=== PATIENT | female | born 1940 | race Caucasian/White ===

== ENCOUNTER → 2024-02-26 | Outpatient (CLI) | payer MEDICARE ==
[~2024-02-26] MED LIST: APIX5TAB PO; ASPI-556 PO; ATEN50TA PO; ATOR10 PO; HYDR-2132 PO; LEVO100T12 PO; LEVO75TA10 PO; LOSA50TA64 PO; OMEP20TA20 PO; VIT1CAPS5 PO
== END | disposition home or self-care (01) ==
LOC: RAH 13:46
PROVIDERS: ATTEND Student in an Organized Health Care Education/Training Program
DX: M19.012 Primary osteoarthritis, left shoulder (principal); M67.814 Other specified disorders of tendon, left shoulder; M25.512 Pain in left shoulder
CPT/HCPCS: 73221

== ENCOUNTER 2024-03-06 13:00 | Observation (INO) | payer MEDICARE ==
[~2024-03-06] VITALS: Ht 166.4 cm; Wt 79.6 kg
[~2024-03-06 13:00] MED LIST changes: -APIX5TAB PO; -ATOR10 PO; -HYDR-2132 PO; -LEVO100T12 PO; -LEVO75TA10 PO; -OMEP20TA20 PO
[2024-03-06 13:47] LABS: BASOPHILS # (AUTO) 0.02 K/uL (0.00-0.20); BASOPHILS % (AUTO) 0.4 % (0.0-5.0); EOSINOPHILS # (AUTO) 0.08 K/uL (0.00-0.70); EOSINOPHILS % (AUTO) 1.7 % (0.0-8.0); HEMATOCRIT 42.1 % (36-48); IMMATURE GRANULOCYTE ABSOLUTE 0.01 K/uL (0-1); LYMPHOCYTES # (AUTO) 1.8 K/uL (1.0-4.8); LYMPHOCYTES % (AUTO) 36.6 % (21.0-51.0); MEAN CORPUSCULAR HEMOGLOBIN 29.6 pg (27.0-33.0); MEAN CORPUSCULAR HGB CONC 32.1 g/dL (32.0-36.0); MEAN CORPUSCULAR VOLUME 92.3 fL (79-99); MONOCYTES # (AUTO) 0.3 K/uL (0.1-1.0); MONOCYTES % (AUTO) 7.1 % (3.0-13.0); NEUTROPHILS # (AUTO) 2.6 K/uL (1.8-7.7); PLATELET COUNT (AUTO) 203 K/uL (130-400); RED BLOOD CELL COUNT(AUTO) 4.56 MIL/uL (4.00-5.50); RED CELL DISTRIBUTION WIDTH 13.6 % (11.0-15.5); WHITE BLOOD COUNT (AUTO) 4.8 K/uL (4.8-10.8)
[2024-03-06 13:48] VITALS: BP 164/80; PULSE 89; RESP 17; TEMP 98
[2024-03-06 13:57] LABS: ALBUMIN 3.7 g/dL (3.5-5.0); CARBON DIOXIDE 31 mmol/L (21-32); CHLORIDE 101 mmol/L (101-111); CREATININE 1.2 mg/dL (0.5-1.0); GLOMERULAR FILTR. RATE CALC 45 mL/min (>90); GLUCOSE,RANDOM 121 mg/dL (70-105); POTASSIUM 4.5 mmol/L (3.5-5.1); SODIUM SERUM 139 mmol/L (136-145); UREA NITROGEN, BLOOD 32 mg/dL (7-18)
[2024-03-06 14:03] LABS: INR 1.04 (0.85-1.15); PROTHROMBIN TIME 11.2 SEC (9.6-11.6)
[2024-03-06 14:04] LABS: PARTIAL THROMBOPLASTIN TIME 27.3 SEC (26.3-35.5)
[2024-03-06] MEDS ORDERED: PHARMACY COMMUNICATION MISC SCH (14:30)
[2024-03-07] MEDS ORDERED: CHOL200059 PO (13:14)
[2024-03-07] MEDS ORDERED: LEVO100T4 PO (13:14)
[2024-03-07] MEDS ORDERED: CYAN1TAB44 PO (13:14)
[2024-03-07] MEDS ORDERED: ACET-2123 PO (13:14)
[2024-03-11] VITALS (28 sets, daily range): BP systolic 130–196; BP diastolic 58–99; PULSE 68–94; RESP 15–20; TEMP 96.9–98.7; O2SAT 97–98
[2024-03-11] MEDS ORDERED: SUCCINYLCHOLINE CHLORIDE 20 MG/ML 10 ML VIAL ONE (06:41)
[2024-03-11] MEDS ORDERED: LIDOCAINE PF 100MG/5ML (2%) SYRINGE 5ML ONE (06:41)
[2024-03-11] MEDS ORDERED: NEOSTIGMINE METHYLSULFATE 1MG/ML IV ONE (06:42)
[2024-03-11] MEDS ORDERED: ONDANSETRON 4MG INJ ONE (06:42)
[2024-03-11] MEDS ORDERED: proPOFol 10 MG/ML 20ML VIAL IV ONE (06:42)
[2024-03-11] MEDS ORDERED: GLYCOPYRROLATE 0.2 MG/ML 5 ML VIAL ONE (06:42)
[2024-03-11] MEDS ORDERED: dexaMETHasone SOD PHOSPHATE 10MG/ML 1ML VIAL ONE ×2 (06:42→09:57)
[2024-03-11] MEDS ORDERED: FENTanyl CITRate PF 50 MCG/1 ML 2ML VIAL ONE ×2 (06:43→09:37)
[2024-03-11] MEDS ORDERED: rocuRONium bROMide 10MG/1ML 5ML VL ONE (06:43)
[2024-03-11] MEDS ORDERED: MIDAZOLAM HCL 1 MG/ML 2ML VIAL ONE ×2 (06:43→09:37)
[2024-03-11] MEDS: LACTATED RINGERS 1000ML 1,000 ML IV ONE (06:47)
[2024-03-11] MEDS ORDERED: ALBUMIN (HUMAN) 5% 250 ML IV ONE (06:52)
[2024-03-11] MEDS ORDERED: PHENYLEPHRINE HCL 10 MG/ML 1ML VIAL IV ONE ×2 (06:55→10:53)
[2024-03-11] MEDS: SCOPOLAMINE HYDROBROMIDE 1 EACH ADH..PATCH TD SCH (07:24)
[2024-03-11] MEDS: SCOPOLAMINE HYDROBROMIDE 1 EACH ADH..PATCH TD ONE (07:24)
[2024-03-11 08:16] LABS: APPEARANCE,URINE CLEAR (CLEAR); BILIRUBIN,URINE NEGATIVE (NEGATIVE); COLOR,URINE LIGHT-YELLOW (YELLOW); GLUCOSE, URINE (UA) NEGATIVE (NEGATIVE); KETONES,URINE NEGATIVE (NEGATIVE); LEUKOCYTE ESTERASE ,URINE 25 Leu/uL (NEGATIVE); NITRATE,URINE NEGATIVE (NEGATIVE); OCCULT BLOOD,URINE NEGATIVE (NEGATIVE); PROTEIN,URINE NEGATIVE (NEGATIVE); UROBILINOGEN,URINE 0.2 mg/dL (0.2-1.0)
[2024-03-11 08:24] LABS: ADD UA MICROSCOPIC YES
[2024-03-11] MEDS ORDERED: VITAMIN B-12 PO (08:30)
[2024-03-11 08:51] LABS: MUCUS,URINE RARE LPF (None Seen); RBC,URINE 0-1 /HPF (0-1); SQUAMOUS EPITHELIAL CELL,UR RARE /HPF (0-2)
[2024-03-11] MEDS ORDERED: ePHEDrine SULFate 50 MG/ML AMPULE ONE (09:59)
[2024-03-11] MEDS: ceFAZolin SODIUM 2 GM VIAL ONE ×2 (10:30→18:25)
[2024-03-11] MEDS: TRANEXAMIC ACID 1000MG/10ML ONE (10:40)
[2024-03-11] MEDS ORDERED: KCL 20 MEQ ERTAB PO PRN (13:00)
[2024-03-11] MEDS ORDERED: POTASSIUM CHLORIDE 10% ELIXIR 20 MEQ/15 ML UDCUP PO PRN (13:00)
[2024-03-11] MEDS ORDERED: CALCIUM CARB 500MG PO PRN (13:00)
[2024-03-11] MEDS ORDERED: FE FUMARATE/FA/MV, MIN COMB#15 1 TAB PO PRN (13:00)
[2024-03-11] MEDS ORDERED: POTASSIUM CHLORIDE 20MEQ/100ML 100 ML IV PRN (13:00)
[2024-03-11] MEDS ORDERED: CYCLOBENZAPRINE HCL 10 MG TABLET PO PRN (13:00)
[2024-03-11] MEDS ORDERED: traMADol HCL 50 MG TABLET PO PRN (13:00)
[2024-03-11] MEDS ORDERED: ONDANSETRON 4MG INJ IVP PRN (13:00)
[2024-03-11] MEDS: hydrALAZine 20MG/ML VIAL ONE (13:54)
[2024-03-11] MEDS: ONDANSETRON 4MG INJ ONE (14:46)
[2024-03-11] MEDS: acetaMINOPHEN 1,000 MG/100 ML VIAL IV ONE (14:47)
[2024-03-11] MEDS: ketOROlac 15MG/ML VIAL (15MG/ML) ONE (15:56)
[2024-03-11] MEDS: ketOROlac 15MG/ML VIAL (15MG/ML) IV SCH (15:56)
[2024-03-11] MEDS: GABApentin 100 MG CAPSULE PO SCH (16:02)
[2024-03-11] MEDS: ceFAZolin SODIUM 2 GM VIAL IVPB SCH (18:25)
[2024-03-11] MEDS: 0.9%NACL 1000ML 1,000 ML IV SCH (18:45)
[2024-03-11] MEDS: VIT A PO SCH (21:00)
[2024-03-11] MEDS: VIT E PO SCH (21:00)
[2024-03-11] MEDS: COPPER PO SCH (21:00)
[2024-03-11] MEDS: ZINC PO SCH (21:00)
[2024-03-11] MEDS: VIT C PO SCH (21:00)
[2024-03-11] MEDS: LoSARTan 50 MG TABLET PO SCH (21:18)
[2024-03-11] MEDS: doCUSate SODIUM 100 MG CAP PO SCH (21:20)
[2024-03-12 04:00] VITALS: BP 136/61; PULSE 83; RESP 18; TEMP 98.9
[2024-03-12 04:46] LABS: HEMATOCRIT 32.5 % (36-48); MEAN CORPUSCULAR HEMOGLOBIN 29.1 pg (27.0-33.0); MEAN CORPUSCULAR VOLUME 90.8 fL (79-99); RED BLOOD CELL COUNT(AUTO) 3.58 MIL/uL (4.00-5.50); RED CELL DISTRIBUTION WIDTH 13.8 % (11.0-15.5); WHITE BLOOD COUNT (AUTO) 5.8 K/uL (4.8-10.8)
[2024-03-12 04:55] LABS: CREATININE 1.2 mg/dL (0.5-1.0); POTASSIUM 4.4 mmol/L (3.5-5.1)
[2024-03-12] MEDS: SYNTHROID 100 MCG PO SCH (06:51)
[2024-03-12 07:40] VITALS: BP 160/74; PULSE 89; RESP 18; TEMP 97.7
[2024-03-12 08:00] VITALS: O2SAT 96
[2024-03-12] MEDS: **HM**(Vitamin D3) (Vitamin D3) 50 MCG) PO SCH (09:00)
[2024-03-12] MEDS: polyETHYLene GLYCol 3350 17 GM POWD.PACK PO SCH (09:00)
[2024-03-12] MEDS: HYDROcodone/APAP 5/325 1 TAB TABLET PO PRN (09:36)
[2024-03-12 11:57] VITALS: BP 114/60; PULSE 79; RESP 18; TEMP 98.7
[2024-03-12] MEDS ORDERED: ATENOLOL 50 MG TABLET PO SCH (12:00)
[2024-03-12] MEDS ORDERED: CYANOCOBALAMIN (VITAMIN B-12) 1,000 MCG TABLET PO SCH (12:00)
[2024-03-12] MEDS ORDERED: HYDROcodone/APAP 5/325 1 TAB TABLET PO PRN (14:00)
[2024-03-12 14:50] VITALS: BP 130/78; PULSE 83; RESP 20; TEMP 98.6
[2024-03-12] MEDS ORDERED: TRAM50TA4 PO (14:58)
[2024-03-12] MEDS ORDERED: CYCL-309 PO (14:58)
[2024-03-12] MEDS ORDERED: DOCU-116 PO (14:58)
[2024-03-12] MEDS ORDERED: HYDR-4060 PO (14:58)
[2024-03-13] MEDS ORDERED: ATENOLOL 25 MG TABLET PO SCH (12:00)
[2024-03-14] MEDS ORDERED: BisaCODYL 10 MG SUPP.RECT RC PRN (13:00)
== END 2024-03-12 05:30 | disposition home or self-care (01) ==
LOC: DAHIP 03-11 06:20 → 4CH 03-11 18:15
PROVIDERS: ADMIT Student in an Organized Health Care Education/Training Program; ATTEND Student in an Organized Health Care Education/Training Program
DX: M19.012 Primary osteoarthritis, left shoulder (principal); D62 Acute posthemorrhagic anemia; M75.112 Incomplete rotator cuff tear or rupture of left shoulder, not specified as traumatic; Z79.899 Other long term (current) drug therapy; Z98.890 Other specified postprocedural states
CPT/HCPCS: 82040; 80048 ×2; 85025; 85610; 85730; 84134; 86140; 36415 ×2; 87641; 23472; 64415; 96376 ×2; 96365; 96375; 87086; 81001; 73020; 73030; 97161; 97116 ×2; 97530 ×4; 96366; 85027; G0378 ×8; G0379; A4223 ×2; A4600; A4663 ×2; A6207; J7030; A4565; C1776; P9045; J7120; J3010 ×2; J3490 ×4; J1100 ×2; J0330; J2001; J0360; J2250; J2704; J2405 ×2; J2710; J1885 ×3; J2371 ×2; J0690 ×3; G0168; A4930; A4649; A6254; A5120; A4215; A4213; A6251; A4222; A4221; A4216

== ENCOUNTER 2024-10-16 12:00 | Observation (INO) | payer MEDICARE ==
[~2024-10-16] VITALS: Ht 167.6 cm; Wt 72.6 kg
[~2024-10-16 12:00] MED LIST changes: -ATEN50TA PO; +CHOL200059 PO
[2024-10-16 14:49] LABS: BASOPHILS # (AUTO) 0.03 K/uL (0.00-0.20); BASOPHILS % (AUTO) 0.6 % (0.0-5.0); EOSINOPHILS % (AUTO) 1.9 % (0.0-8.0); HEMATOCRIT 39.1 % (36-48); IMMATURE GRANULOCYTE ABSOLUTE 0.01 K/uL (0-1); LYMPHOCYTES # (AUTO) 1.6 K/uL (1.0-4.8); LYMPHOCYTES % (AUTO) 31.4 % (21.0-51.0); MEAN CORPUSCULAR HEMOGLOBIN 28.8 pg (27.0-33.0); MEAN CORPUSCULAR HGB CONC 31.2 g/dL (32.0-36.0); MEAN CORPUSCULAR VOLUME 92.2 fL (79-99); MONOCYTES # (AUTO) 0.3 K/uL (0.1-1.0); MONOCYTES % (AUTO) 6.4 % (3.0-13.0); NEUTROPHILS # (AUTO) 3.1 K/uL (1.8-7.7); NEUTROPHILS % (AUTO) 59.5 % (40.0-77.0); PLATELET COUNT (AUTO) 210 K/uL (130-400); RED BLOOD CELL COUNT(AUTO) 4.24 MIL/uL (4.00-5.50); RED CELL DISTRIBUTION WIDTH 14.6 % (11.0-15.5); WHITE BLOOD COUNT (AUTO) 5.2 K/uL (4.8-10.8)
[2024-10-16 14:58] LABS: INR 1.03 (0.85-1.15); PROTHROMBIN TIME 10.9 SEC (9.6-11.6)
[2024-10-16 15:00] LABS: PARTIAL THROMBOPLASTIN TIME 26.2 SEC (26.3-35.5)
[2024-10-16 15:05] VITALS: PULSE 96; RESP 18; TEMP 96.4
[2024-10-16 15:23] LABS: ALBUMIN 3.7 g/dL (3.5-5.0); CARBON DIOXIDE 31 mmol/L (21-32); CHLORIDE 102 mmol/L (101-111); CREATININE 1.2 mg/dL (0.5-1.0); GLOMERULAR FILTR. RATE CALC 45 mL/min (>90); GLUCOSE,RANDOM 126 mg/dL (70-105); POTASSIUM 4.4 mmol/L (3.5-5.1); SODIUM SERUM 139 mmol/L (136-145); UREA NITROGEN, BLOOD 31 mg/dL (7-18)
[2024-10-17] MEDS ORDERED: VITAMIN B12 PO (16:15)
[2024-10-17] MEDS ORDERED: ATEN25TA PO (16:15)
[2024-10-17] MEDS ORDERED: ACET-2123 PO (16:15)
[2024-10-17] MEDS ORDERED: OFLO5DRO21 OU (16:15)
[2024-10-17] MEDS ORDERED: CHOL100040 PO (16:15)
[2024-10-17] MEDS ORDERED: LEVO100T4 PO (16:15)
[2024-10-21] VITALS (28 sets, daily range): BP systolic 128–205; BP diastolic 50–98; PULSE 61–80; RESP 15–22; TEMP 97.5–98.3; O2SAT 98
[2024-10-21] MEDS: ceFAZolin SODIUM 2 GM VIAL ONE (09:39)
[2024-10-21] MEDS: LACTATED RINGERS 1000ML 1,000 ML IV ONE (09:39)
[2024-10-21 09:41] LABS: BILIRUBIN,URINE NEGATIVE (NEGATIVE); COLOR,URINE YELLOW (YELLOW); GLUCOSE, URINE (UA) NEGATIVE (NEGATIVE); KETONES,URINE 5 mg/dL (NEGATIVE); LEUKOCYTE ESTERASE ,URINE 250 Leu/uL (NEGATIVE); NITRATE,URINE 2+ (NEGATIVE); OCCULT BLOOD,URINE NEGATIVE (NEGATIVE); PH,URINE 6.5 (5.0-8.0); PROTEIN,URINE 20 mg/dL (NEGATIVE); UROBILINOGEN,URINE 0.2 mg/dL (0.2-1.0)
[2024-10-21 09:53] LABS: ADD UA MICROSCOPIC YES; APPEARANCE,URINE HAZY (CLEAR)
[2024-10-21 09:57] LABS: BACTERIA,URINE MANY /HPF (None Seen); MUCUS,URINE RARE LPF (None Seen); SQUAMOUS EPITHELIAL CELL,UR MOD /HPF (0-2)
[2024-10-21] MEDS: IpraTROPium/alBUTERol SULFATE 3 ML SOLUTION IH ONE (10:48)
--- NOTE | 2024-10-21 14:19 | OP ---
Operative Note: DATE OF PROCEDURE: 10/21/24 SURGEON: LASHAY NARVAEZ MD ORTHOPEDIC PHYSICIAN ASSISTANT: Herve Mayfield ANESTHESIA: General and interscalene block ANESTHESIOLOGIST/HARP REPAIRER: HARP REPAIRER then developed this PREOPERATIVE DIAGNOSIS: Right shoulder cuff tear arthropathy POSTOPERATIVE DIAGNOSIS: Right shoulder cuff tear arthropathy PROCEDURE: Right reverse total shoulder arthroplasty ESTIMATED BLOOD LOSS: 200 cc COMPLICATIONS: Small periprosthetic fracture in the metaphyseal region on insertion final implant DRAINS: None SPECIMENS: resected bone from the humeral head not sent to pathology IMPLANTS: [employer] size 10 x 32 V135 humeral stem with single interlocking screw, 32+3 stability cup, 32 centered glenosphere, +3 mm lateralized base plate with central screw and three locking screws locking screws INDICATIONS: 84-year-old female with right shoulder pain and dysfunction secondary to rotator cuff arthropathy. The patient was failing conservative management and was found on MRI to have a large retracted rotator cuff tear with atrophy of the muscles. After discussion the risk, benefits, and alternatives, the patient voluntarily agreed to undergo the aforementioned procedure. DESCRIPTION OF PROCEDURE: Patient was properly identified in the preoperative holding area. Surgical site marking was verified and surgery consent reviewed. The patient was then taken to the operating room and placed in supine position on the OR table. After induction of general anesthesia, preoperative antibiotics were given, all bony prominences were well-padded as the patient was transitioned into beach chair positioning. The right upper extremity was then prepped and draped in usual sterile fashion. Surgical time out was done verifying correct surgery, side, site, and location to be performed. We then began the procedure by making approximately 12 cm long incision over the deltopectoral interval using a 10 blade. Hemostasis was performed using Bovie electrocautery. We then dissected through the subcutaneous tissues using the Metzenbaums to identify our deltopectoral interval. We then mobilized the cephalic vein laterally as we opened the interval. We then incised the clavipectoral fascia just lateral to the conjoined tendon and placed our retractor deep to this. We identified the long head of the biceps tendon and performed a tenotomy. We then began elevating the subscapularis off of its insertion on the humeral head using Bovie electrocautery. With external rotation we brought the humeral head into view and released the capsule at the inferior aspect of the head. We released a small portion of the pectoralis off of its insertion on the humerus to allow for better exposure. We then placed our retractors protecting soft tissue. At this point we began using the sounding instruments, hand reaming up to a size 10. We pinned the cutting guide off of the handle in 30 degrees of version and performed the humeral osteotomy. We then broached up to a size 10 x 32. We elected to change the version to 40 to prevent implant impinging on cortical bone. The rongeur was used to clean up our cut. We subluxated the humerus posteriorly. We then placed our retractors around the glenoid to provide adequate exposure of the glenoid. The labrum and long head biceps tendon were resected with Bovie electrocautery. We then used to the guide to insert our central guidepin e nsuring we were far enough inferior on the glenoid face. Over the central guidepin we reamed with the all-in-one reamer for the central peg and the faceplate. We then used the cell tuber hand to clean up the remaining soft tissue and bone. We then thoroughly irrigated out the glenoid bone and impacted into position the glenoid baseplate. We elected to place a central screw through the base plate that appeared to provide some compression. We then placed 3 locking screws in the baseplate. We noted using a freer elevator that the baseplate was appropriately seated. We elected to use a centered glenosphere. Glenosphere was then seated in standard fashion with the setscrew tightened. We then removed our retractors and dislocated the humerus once more. We then elected to trial with a size +3 polyethylene. With this in place, we reduced the humerus and noted good stable range of motion. We then dislocated the humerus and removed the trial components. We thoroughly irrigated out the bone. We seated the final stem implant and went ahead and placed a locking screw in the proximal locking hole through the jig. We noticed on seating the implant that the cortical rim in the metaphyseal region was fractured. This did not appear to propagate in an unstable manner. We then trialed once more. The size +3 polyethylene was still appropriate so we opened the final polyethylene and implanted this in standard fashion. We then reduced the humerus once more and ensured appropriate range of motion and stability. We checked the position of the components under fluoroscopy and found them to be appropriate. We thoroughly irrigated out the wound. We then began loosely repairing the deltopectoral interval using #2 Ethibond. Subcutaneous tissue was approximated using 2-0 Vicryl. The skin was closed using a running subcuticular 3-0 Monocryl with Dermabond applied. An Optifoam dressing was applied once the Dermabond dried. The patient was then placed into a sling, awakened from anesthesia, and taken recovery room in stable condition. LASHAY NARVAEZ MD Oct 21, 2024 14:19
[2024-10-21] MEDS ORDERED: PoTASSium chloRIDE 20MEQ ER 20 MEQ ERTAB PO PRN (14:30)
[2024-10-21] MEDS ORDERED: traMADol HCL 50 MG TABLET PO PRN (14:30)
[2024-10-21] MEDS ORDERED: FE FUMARATE/FA/MV, MIN COMB#15 1 TAB PO PRN (14:30)
[2024-10-21] MEDS ORDERED: PoTASSium chloRIDE 20MEQ/100ML 100 ML IV PRN (14:30)
[2024-10-21] MEDS ORDERED: CALCIUM CARB 500MG PO PRN (14:30)
[2024-10-21] MEDS ORDERED: PoTASSium chl 10% ELIXIR 20MEQ 20 MEQ/15 ML UDCUP PO PRN (14:30)
[2024-10-21] MEDS ORDERED: CYCLOBENZAPRINE HCL 10 MG TABLET PO PRN (14:30)
--- NOTE | 2024-10-21 15:15 | NUR ---
Admit Patient in room from PACU. AOX4, no s/sx distress. Patient reports numbness in right shoulder. Shoulder sling in place. Family at bedside during admission, oriented to room and plan of care. RT notified, PT notified of admission.
--- NOTE | 2024-10-21 15:26 | HMCIMG ---
SHOULDER COMP 2+VWS RT HISTORY: ORIF COMPARISON: None TECHNIQUE: Images of right shoulder were obtained under fluoroscopy. FINDINGS: Please see procedure report by referring physician. IMPRESSION: 1. Findings as described above.
[2024-10-21] MEDS: ketOROlac 15MG/ML VIAL (15MG/ML) IV SCH (16:10)
[2024-10-21] MEDS: 0.9%NACL 1000ML 1,000 ML IV SCH (17:11)
[2024-10-21] MEDS: ceFAZolin SODIUM 2 GM VIAL IVP SCH (20:32)
[2024-10-21] MEDS: LoSARTan 50 MG TABLET PO SCH (20:32)
[2024-10-21] MEDS: (Vit A/Vit C/Vit E/Zinc/Copper (Preservision Areds Softgel PO SCH (20:32)
[2024-10-21] MEDS: doCUSate SODIUM 100 MG CAP PO SCH (20:32)
[2024-10-22 03:10] VITALS: BP 126/72; PULSE 71; RESP 16; TEMP 97.9
[2024-10-22] MEDS: HYDROcodone/APAP 5/325 1 TAB TABLET PO PRN (05:27)
[2024-10-22 05:45] LABS: HEMATOCRIT 34.5 % (36-48); MEAN CORPUSCULAR HEMOGLOBIN 29.6 pg (27.0-33.0); MEAN CORPUSCULAR HGB CONC 32.5 g/dL (32.0-36.0); MEAN CORPUSCULAR VOLUME 91.3 fL (79-99); RED BLOOD CELL COUNT(AUTO) 3.78 MIL/uL (4.00-5.50); RED CELL DISTRIBUTION WIDTH 14.4 % (11.0-15.5); WHITE BLOOD COUNT (AUTO) 8.4 K/uL (4.8-10.8)
[2024-10-22 06:09] LABS: CREATININE 1.4 mg/dL (0.5-1.0); POTASSIUM 4.7 mmol/L (3.5-5.1)
[2024-10-22] MEDS: levoTHYROxine 100 MCG TABLET PO SCH (06:17)
[2024-10-22 07:49] VITALS: BP 142/65; PULSE 80; RESP 18; TEMP 97.2
[2024-10-22] MEDS: polyETHYLene GLYCol 3350 17 GM POWD.PACK PO SCH (08:28)
[2024-10-22] MEDS: ATENOLOL 25 MG TABLET PO SCH (08:28)
[2024-10-22 08:30] VITALS: O2SAT 97
[2024-10-22] MEDS: (Cholecalciferol (Vitamin D3) (Vitamin D3) 25 MCG) PO SCH (08:32)
--- NOTE | 2024-10-22 08:41 | PN ---
Ortho postop day one. This morning the patient is awake and alert and oriented. She is still in bed enjoying her breakfast. Reports adequate pain control. Vital signs have remained stable she is afebrile. Voiding on her own. . Laboratory results reviewed noted to have a drop in hemoglobin and hematocrit as expected after reverse shoulder arthroplasty. Currently patient is asymptomatic we will continue to observe and address per protocol as necessary. In forced incentive spirometry. SCD stockings currently on.. Arm is in arm sling. The dressing is intact. She is able to move her hand and wrist on command full function. Distal neurovascular exam normal. She did ambulate with therapy yesterday. I have discussed with her to spend the majority of her day out of bed and she understood. Anticipated discharge goal is home health/OT with the [facility]. Assessment: Status post right reverse shoulder arthroplasty. Asymptomatic acute postoperative blood loss anemia. Plan: Continue with Dr. Marcos reverse shoulder arthroplasty protocol and discharge planning. Asymptomatic acute postoperative blood loss anemia addressed with the protocol as necessary Vitals/Labs Vital Signs Date Time Temp Pulse Resp B/P (MAP) Pulse Ox O2 Delivery O2 Flow Rate FiO2 10/22/24 08:28 80 142/65 10/22/24 07:49 97.2 18 97 Room Air 10/21/24 20:55 2.0 10/21/24 20:32 24 Laboratory Tests 10/22/24 05:13 Microbiology Date/Time Source Procedure Growth Status 10/21/24 09:06 Urine,Clean Catch - Final Complete Medications Current Medications Cefazolin Sodium 2 gm STK-MED ONCE .ROUTE Last administered on 10/21/24at 11:35; Start 10/21/24 at 08:51; Stop 10/21/24 at 08:51; Status DC Lactated Ringer's 1,000 ml @ As Directed STK-MED ONCE IV Last administered on 10/21/24at 09:39; Start 10/21/24 at 08:51; Stop 10/21/24 at 08:51; Status DC Albuterol 1 UDVIAL ONCE ONCE IH Last administered on 10/21/24at 10:48; Start 10/21/24 at 11:00; Stop 10/21/24 at 11:01; Status DC Sodium Chloride 1,000 ml @ 100 mls/hr Q10H IV Last administered on 10/21/24at 17:11; Start 10/21/24 at 14:30; Stop 10/22/24 at 14:29 Polyethylene Glycol 17 gm DAILY PO Last administered on 10/22/24at 08:28; Start 10/22/24 at 09:00; Stop 11/21/24 at 08:59 Bisacodyl 10 mg DAILY PRN RC; Start 10/24/24 at 14:30; Stop 11/23/24 at 14:29 Ketorolac Tromethamine 15 mg Q6H PRN IV; Start 10/22/24 at 14:30; Stop 10/27/24 at 14:29 Multivitamins/Iron 1 tab DAILY PRN PO; Start 10/21/24 at 14:30; Stop 11/20/24 at 14:29 Ondansetron HCl 4 mg Q6H PRN IVP; Start 10/21/24 at 14:30; Stop 11/20/24 at 14:29 Calcium Carbonate 500 mg Q12H PRN PO; Start 10/21/24 at 14:30; Stop 11/20/24 at 14:29 Cefazolin Sodium 2 gm Q8H IVP Last administered on 10/22/24at 03:39; Start 10/21/24 at 19:30; Stop 10/22/24 at 03:31; Status DC Cyclobenzaprine HCl 5 mg Q8H PRN PO; Start 10/21/24 at 14:30; Stop 11/20/24 at 14:29 Docusate Sodium 100 mg BID PO Last administered on 10/22/24at 08:28; Start 10/21/24 at 21:00; Stop 11/20/24 at 20:59 Ketorolac Tromethamine 15 mg Q8H IV Last administered on 10/22/24at 06:17; Start 10/21/24 at 14:30; Stop 10/22/24 at 06:31; Status DC Potassium Chloride 100 ml @ 100 mls/hr AD PRN IV; Start 10/21/24 at 14:30; Stop 11/20/24 at 14:29 Potassium Chloride 20 meq AD PRN PO; Start 10/21/24 at 14:30; Stop 11/20/24 at 14:29 Potassium Chloride 20 meq AD PRN PO; Start 10/21/24 at 14:30; Stop 11/20/24 at 14:29 Tramadol HCl 50 mg Q6H PRN PO; Start 10/21/24 at 14:30; Stop 10/26/24 at 14:29 Atenolol 25 mg DAILY PO Last administered on 10/22/24at 08:28; Start 10/22/24 at 09:00; Stop 11/21/24 at 08:59 Levothyroxine Sodium 100 mcg SYN PO Last administered on 10/22/24at 06:17; Start 10/22/24 at 06:30; Stop 11/21/24 at 06:29 Losartan Potassium 50 mg HS PO Last administered on 10/21/24at 20:32; Start 10/21/24 at 21:00; Stop 11/20/24 at 20:59 Home Med (Cholecalciferol (Vitamin D3) (Vitamin D3)... QTUTHSA PO; Start 10/22/24 at 09:00; Stop 11/21/24 at 08:59 Home Med (Cholecalciferol (Vitamin D3) (Vitamin D3)... QMOWEFR PO; Start 10/23/24 at 09:00; Stop 11/22/24 at 08:59 Home Med (Ofloxacin 1 DROP) QID OU; Start 10/21/24 at 17:00; Stop 11/20/24 at 16:59 Home Med (Vit A/Vit C/ Vit E/Zinc/ Marketing Support Specialist... BID PO; Start 10/21/24 at 21:00; Stop 11/20/24 at 20:59 Vitamin B Complex 500 mcg PCLUNCH PO; Start 10/22/24 at 13:00; Stop 11/21/24 at 12:59 Acetaminophen/ Hydrocodone Bitart 1 tab Q6H PRN PO Last administered on 10/22/24at 05:27; Start 10/21/24 at 14:30; Stop 10/26/24 at 14:29 MEIR KIMBLE NP Oct 22, 2024 08:41
[2024-10-22] MEDS: ondanSETRON 4MG INJ IVP PRN (10:49)
--- NOTE | 2024-10-22 11:17 | NUR ---
[facility] CM MET WITH PT AND IN ROOM THIS MORNING, INITIAL ASSESSMENT DONE. PATIENT IS INDEPENDENT PRIOR TO ADMISSION, LIVES AT HOME WITH HER . PATIENT HAS A WALKER, CANE, SHOWER CHAIR, BPM. DENIES ANY OTHER EQUIPMENT/SERVICES. FEELS SAFE TO GO BACK HOME, DOES NOT DRIVE, SPOUSE AND FAMILY ABLE TO ASSIST WITH TRANSPORTATION AND NEEDS NECESSARY. DISCUSSED MD RECOMMENDATIONS FOR HOME W/HOME HEALTH, GIVEN IN NETWORK HH, PT AGREEABLE, REQUESTING SPOUSE TO SIGN CONSENT, SPOUSE SIGNED CONSENT ASHLEY FOR [facility]. [facility] HOME W/[facility] HH ONCE PT HAS ACCEPTANCE. CM TO CONTINUE TO FOLLOW UP. Addendum: 10/22/24 at 1119 by LULI HUTCHINSON LVN Amended: Links added.
[2024-10-22 11:19] VITALS: BP 96/46; PULSE 75; RESP 18; TEMP 98.3
--- NOTE | 2024-10-22 12:07 | NUR ---
CM NOTE: [facility] APPROVAL CM SPOKE TO [facility] W/[facility], PT HAS APPROVAL, REP WILL SCHEDULE VISIT W/PT. CM MET WITH PT, SPOUSE NOT IN ROOM, PT MADE AWARE OF APPROVAL. INFORMED THIS CM WILL INFORMED A COURTESY, AGREEABLE. CM CALLED , MADE AWARE OF APPROVAL, INFORMED DR NARVAEZ IS ALREADY UPDATED, IT WILL BE UP TO MD TO CLEAR AND DC PT ONCE PT STABLE POSSIBLY TODAY/TOMORROW. VERBALIZED UNDERSTANDING. CM TO CONTINUE TO FOLLOW UP.
[2024-10-22] MEDS: CYANOCOBALAMIN (VITAMIN B-12) 1,000 MCG TABLET PO SCH (13:00)
[2024-10-22] MEDS ORDERED: ketOROlac 15MG/ML VIAL (15MG/ML) IV PRN (14:30)
[2024-10-22] MEDS ORDERED: DOCU-116 PO (15:19)
[2024-10-22] MEDS ORDERED: TRAM50TA4 PO (15:19)
[2024-10-22 15:44] VITALS: BP 123/64; PULSE 73; RESP 18; TEMP 98.2
--- NOTE | 2024-10-22 17:49 | NUR ---
DISCHARGE Patient ready for discharge. [facility] nurse Shae given report. Patient provided with discharge instructions including follow up appointment and discharge medications. at bedside during teaching. Verbalized understanding and all questions answered. IV removed. Patient discharged home with all belongings and dc instruction copies for [facility].
[2024-10-23] MEDS ORDERED: (Cholecalciferol (Vitamin D3) (Vitamin D3) 50 MCG) PO SCH (09:00)
[2024-10-24] MEDS ORDERED: BisaCODYL 10 MG SUPP.RECT RC PRN (14:30)
== END 2024-10-22 18:00 | disposition home or self-care (01) ==
LOC: DAHIP 10-21 08:45 → 4AH 10-21 15:10
PROVIDERS: ADMIT Student in an Organized Health Care Education/Training Program; ATTEND Student in an Organized Health Care Education/Training Program
DX: M75.101 Unspecified rotator cuff tear or rupture of right shoulder, not specified as traumatic (principal); G89.18 Other acute postprocedural pain; D62 Acute posthemorrhagic anemia; E03.9 Hypothyroidism, unspecified; E78.5 Hyperlipidemia, unspecified; I12.9 Hypertensive chronic kidney disease with stage 1 through stage 4 chronic kidney disease, or unspecified chronic kidney disease; N18.9 Chronic kidney disease, unspecified; Z90.710 Acquired absence of both cervix and uterus; Z86.711 Personal history of pulmonary embolism; Z79.899 Other long term (current) drug therapy
CPT/HCPCS: 82040; 80048 ×2; 85025; 85610; 85730; 84134; 86140; 36415 ×2; 87641; 64415; 23472; 96376 ×2; 96365; 96375 ×2; 87086 ×2; 87186; 81001; 73030; 97161; 97116 ×3; 94640; 96366; 85027; 97530 ×3; G0378 ×24; G0379; A4663; J7030; A4565; J7120; J1885 ×3; J0690 ×3; C1713; A4930; A4649; C1776; A6254; A4215; A4223; A4222; A4221; J2405